=== PATIENT | female | born 1985 | race Asian ===

== ENCOUNTER 2018-05-31 14:34 | Emergency (ER) | payer OTHER ==
[~2018-05-31] VITALS: Ht 170.2 cm; Wt 119.3 kg
[2018-05-31 14:45] VITALS: TEMP 99
[2018-05-31 17:00] VITALS: BP 122/81
== END 2018-05-31 17:20 | disposition home or self-care (01) ==
LOC: ED 14:34
DX: S40.012A Contusion of left shoulder, initial encounter (principal); S50.11XA Contusion of right forearm, initial encounter; S80.11XA Contusion of right lower leg, initial encounter; V49.9XXA Car occupant (driver) (passenger) injured in unspecified traffic accident, initial encounter; Y93.89 Activity, other specified; Y92.89 Other specified places as the place of occurrence of the external cause; Y99.8 Other external cause status
CPT/HCPCS: 81000; 81025; 99283

== ENCOUNTER 2020-11-10 07:39 | Outpatient (CLI) | payer BC, OTHER | END 2020-11-10 20:51 | disposition home or self-care (01) | LOC: CT 07:39 | PROVIDERS: ATTEND Family Medicine | DX: J01.30 Acute sphenoidal sinusitis, unspecified (principal) | CPT/HCPCS: Q9963 ==

== ENCOUNTER 2021-12-05 08:27 | Outpatient (CLI) | payer BC, OTHER | END 2021-12-05 18:50 | disposition home or self-care (01) | LOC: US 08:27 | PROVIDERS: ATTEND Internal Medicine Gastroenterology | DX: R11.2 Nausea with vomiting, unspecified (principal) ==

== ENCOUNTER 2021-12-07 08:15 | Outpatient (CLI) | payer BC, OTHER | END 2021-12-07 19:50 | disposition home or self-care (01) | LOC: NM 08:15 | PROVIDERS: ATTEND Internal Medicine Gastroenterology | DX: R11.2 Nausea with vomiting, unspecified (principal) | CPT/HCPCS: A9541 ==